=== PATIENT | female | born 1975 | race Caucasian/White ===

== ENCOUNTER 2024-12-19 09:30 | Outpatient (RCR) | payer OTHER, SELFPAY ==
--- NOTE | 2024-11-26 13:40 | HP.PTEVAL_ITS ---
Patient's Visit Information Visit Information Visit Information: YIN LEMUS is a 49 year old F referred to Physical Therapy by NELLA Melara with a diagnosis of chronic R shoulder pain.. Date of Evaluation: 11/26/24 Physical Therapist: Benny Etienne, DPT, OCS, CSCS Visit Plan Frequency: 1x/Week Duration: 4-6 Weeks Plan: weekly x 3-4 weeks as neeeded .. IE HEP activity modificaiton for impngement and hammer theory given to patint with HO. Treat with progression of HEP: next phase 3 , then stretch IR, pec if needed and furniture mover muscles. Subjective Subjective: R shoulder hurting with pressure or certain movements for years , comfortable at rest. Front of shoulder is pain.0-2/10. R handed, refrains from using R at times. Avoids heavy objects and reaching behind her. Temporary pain. No numbness or tingling. Insidious onset. Basic ADLs, all I. employed: teacher Normal work. Sleep is not interrupted but sleeps on R shoulder. Hobbies: garden and is normal. Kayak and would not hurt immediately. REgular ex:no Pain shoulder R: Pain Intensity (Out of 10): 0 Pain Intensity Range: 0 and 2 Objective Objective: Posture is forward head adn protracted scap B. Tenderness sup raspinatus insertion R side , not L. cervical and scapular AROM WFL and without pain B. elbow wrist and hand AROM WFL and no pain. shoulder AROM L same as R but pain end range er, ir, flexion slightly, gone at rest. 70 er, 155 flexion L4 IR, + empty can, painful abd, + HK slightly, - neer on R, - ext rotation lag test, - drop arm 2/3 relflexes bi and tri B. sensation UE WNL to gross light touch B. strength er 4- R and 4 L, IR 4 B, pain with ir and er slight, flexion 4- R and 4 L. abd 4- R and 4 L. Balance/Special Test Scores Quick DASH Score: 9.0900 Goals Goal 1:: I appropriate HEP to limit future problems. Goal Time Frame: 2-4 Weeks Goal 2:: quickdash score 12 or less Goal Time Frame: 2-4 Weeks Goal 3:: Pain in shouldeer 1/10 at worst and manageable Goal Time Frame: 2-4 Weeks Goal 4:: Reach behind without pain to tuck in shirt Goal Time Frame: 2-4 Weeks Rehabilitation Potential Physical Therapy Diagnosis: R shoulder inflammation creating pain and diminishing QOL Rehabilitation Potential: Fair Anticipated Interventions Patient/Client Instruction: Educate patient on: Condition, Plan of Care and Risk Factors For the Purpose of:: To decrease pain, To improve nutrient delivery to tissue, To improve muscle performance and motor function, To increase tolerance to activity/condition/position and To improve ability of physical actions for home/community/work/leisure Therapeutic Exercise to Include: Strength training, Postural training, Flexibilty training, Relaxation training, Passive ROM and Active ROM For the Purpose of:: To decrease pain, To increase ROM, To improve nutrient delivery to tissue, To improve muscle performance and motor function, To increase tolerance to activity/condition/position and To improve ability of physical actions for home/community/work/leisure Manual Therapy Techniques to Include: Mobilization, Passive ROM and Soft tissue mobilization For the Purpose of:: To decrease pain and To improve nutrient delivery to tissue Text: Thank you for the opportunity to evaluate your patient. For Medicare and Medicare HMO plans, please review the plan of care and approve it. It will need to be FAXED BACK to us at [phone] for Medicare purposes. For Medicare only, by signing this I certify the plan of care. Please let me know if there are questions or concerns regarding this plan of care. Physician Signature: Date:___
--- NOTE | 2024-12-19 09:55 | HP.PTDCSUM ---
Discharge Summary D/C summary: It has been my pleasure to treat YIN LEMUS referred by NELLA Melara, with the diagnosis of chronic R shoulder pain. for a total of 4 visit(s). Discharge Date: 12/19/24 Please see the following information for a summary of their discharge status. Subjective Subjective: Exercises went oK but 4x/week. Shoulder doing better. Haven't noticed it much, not avoiding alot of stuff. This week 1.10 and not sure what but it is transient. Pain shoulder R: Pain Intensity (Out of 10): 0 Overall Improvement % Improvement: 75 Objective Objective/Function: Good technique and no pain with exercises Full aROM with R tightness but no pain. Quick dash met subjectively but did not fill it out. Goals Goal 1:: I appropriate HEP to limit future problems. Goal Progress: Goal Met Goal 2:: quickdash score 12 or less Goal Progress: Goal Met Goal 3:: Pain in shouldeer 1/10 at worst and manageable Goal Progress: Goal Met Goal 4:: Reach behind without pain to tuck in shirt Goal Progress: Goal Met Plan Plan: d/c to HEP D/C Information d/c sentence: If there are questions or concerns regarding this patient's physical therapy, please feel free to call me at [phone]. Thank you for the referral of this patient. Sincerely, Benny Etienne, DPT, OCS, CSCS Balance/Gait/Functional tests Balance/Special Test Scores Quick DASH Score: 9.0900 Improvement % Improvement: 75
== END 2024-12-19 19:00 | disposition home or self-care (01) ==
LOC: PT 09:30
PROVIDERS: PCP Nurse Practitioner Family; Referring Provider Nurse Practitioner Family; Visit Provider Nurse Practitioner Family
DX: M25.511 Pain in right shoulder (principal)
CPT/HCPCS: 97110; 97161